=== PATIENT | female | born 1960 | race Caucasian/White ===

== ENCOUNTER 2017-03-21 09:43 | Outpatient (CLI) | payer OTHER ==
[2017-03-21 11:26] LABS: #Basophils 0.1 thou/uL (0.0-0.2); #Eosinphils 0.2 thou/uL (0.0-0.7); #Lymphocytes 2.2 thou/uL (1.20-3.40); #Monocytes 0.6 thou/uL (0.11-0.59); #Neutrophils 5.9 thou/uL (1.40-6.50); %Basophils 0.7 % (0.0-1.0); %Eosinophils 2.2 % (0.0-10.0); %Lymphocytes 24.5 % (21.0-51.0); %Monocytes 7.1 % (0.0-10.0); Hematocrit 43.5 % (36.0-47.0); Mean Platelet Volume 7.7 fL (7.4-10.4); Red Blood Cell (RBC) Count 4.62 mill/uL (4.20-5.40); White Blood Cell (WBC) Count 8.9 thou/uL (4.8-10.8)
[2017-03-21 11:30] LABS: Hemoglobin A1c 5.6 % (4.0-6.0)
[2017-03-21 11:49] LABS: ALT (SGPT) 75 U/L (8-55); AST (SGOT) 40 U/L (5-34); Alkaline Phosphatase 93 U/L (40-150); Anion Gap 11 mmol/L (10-20); BUN (Urea Nitrogen) 17 mg/dL (9.8-20.1); Bilirubin, Direct 0.2 mg/dL (0.1-0.3); Bilirubin, Total 0.3 mg/dL (0.2-1.2); Calc. Creatinine Clearance 0 mL/min (70-130); Calcium 9.9 mg/dL (7.8-10.44); Carbon Dioxide 27 mmol/L (22-29); Chloride 105 mmol/L (98-107); Estimated GFR-MDRD 74; Globulin 3.1 g/dL (2.4-3.5); Protein, Total 7.7 g/dL (6.0-8.3)
--- NOTE | 2017-03-21 13:02 | RAD ---
PREOPERATIVE CHEST RADIOGRAPH: HISTORY: A 56-year-old female. FINDINGS: PA and lateral views of the chest are obtained. The lungs are well aerated. No evidence of active i ntrathoracic disease is seen. No evidence of effusions, pneumonia, or pneumothorax is seen. IMPRESSION: Normal two views chest. POS: C
== END 2017-03-21 09:44 | disposition home or self-care (01) ==
LOC: LABBT 09:43
PROVIDERS: ATTEND Surgery
DX: Z01.818 Encounter for other preprocedural examination (principal); E66.01 Morbid (severe) obesity due to excess calories
CPT/HCPCS: 71020; 80053; 80076; 83036; 85025; 93005; 93010

== ENCOUNTER 2017-03-21 10:00 | Inpatient (IN) | payer OTHER ==
[2017-03-28] MEDS ORDERED: CEFAZOLIN/Water 2 GM/20 ML SYRINGE ONE (10:21)
[2017-03-28] MEDS ORDERED: Heparin 5,000 UNITS/ML VIAL ONE (10:22)
[2017-03-28] MEDS ORDERED: Bupivacaine/Epinephrine 0.25% 30 ML VIAL ONE (10:44)
[2017-03-28] MEDS ORDERED: Bupivacaine 0.25% HCL 30 ML VIAL ONE (10:45)
[2017-03-28] MEDS ORDERED: Fentanyl 100 MCG/2 ML VIAL ONE (11:15)
[2017-03-28] MEDS ORDERED: Promethazine HCl 25 MG/ML VIAL ONE (11:16)
[2017-03-28] MEDS ORDERED: Scopolamine 1.5 mg/72 hour Patch ONE (11:40)
[2017-03-28] MEDS ORDERED: Promethazine HCl 25 MG/ML VIAL SLOW IVP PRN (13:30)
[2017-03-28] MEDS ORDERED: HYDROmorphone 2 MG/ML VIAL SLOW IVP PRN (13:30)
[2017-03-28] MEDS ORDERED: Ondansetron HCl/PF 4 MG/2 ML Vial IVP PRN ×3 (13:30→14:55)
[2017-03-28] MEDS ORDERED: Morphine Sulfate 2 MG/ML SYRINGE SLOW IVP PRN (13:30)
[2017-03-28] MEDS ORDERED: Lidocaine 1% PF 5 ML VIAL ONE (13:55)
[2017-03-28] MEDS ORDERED: Glycopyrrolate 0.2 MG/ML 5 ML SYRINGE ONE (13:55)
[2017-03-28] MEDS ORDERED: Ketorolac Tromethamine 30 MG/ML VIAL ONE (13:55)
[2017-03-28] MEDS ORDERED: Propofol 200 MG/20 ML VIAL ONE (13:55)
[2017-03-28] MEDS ORDERED: Ondansetron HCl/PF 4 MG/2 ML Vial ONE (13:55)
[2017-03-28] MEDS ORDERED: Labetalol HCl 100 MG/20 ML VIAL ONE (13:55)
[2017-03-28] MEDS ORDERED: PHENYLEPHRINE-NS 100 MCG/ML 10 ML SYRINGE ONE (13:55)
[2017-03-28] MEDS ORDERED: Dexamethasone 20 MG/5 ML VIAL ONE (13:55)
[2017-03-28] MEDS ORDERED: Fentanyl 5000 MCG/250 ML CADD IVPB PRN (14:07)
[2017-03-28] MEDS ORDERED: Zolpidem Tartrate 5 MG TAB PO PRN (14:07)
[2017-03-28] MEDS ORDERED: diphenhydrAMINE 25 MG CAP PO PRN (14:07)
[2017-03-28] MEDS ORDERED: Naloxone HCl 0.4 mg/ml Vial IV PRN (14:07)
[2017-03-28] MEDS ORDERED: diphenhydrAMINE 50 MG/ML VIAL IM PRN (14:07)
[2017-03-28] MEDS ORDERED: Promethazine HCl 25 MG/ML VIAL IM PRN ×2 (14:07→14:55)
[2017-03-28] MEDS ORDERED: diphenhydrAMINE 50 MG/ML VIAL IVP PRN ×2 (14:07→14:55)
[2017-03-28] MEDS ORDERED: Communication Order-Pharmacy FS SCH (14:15)
[2017-03-28] MEDS ORDERED: Hydrocodone-Acetamin 15 ML UDCUP PO PRN (14:55)
[2017-03-28] MEDS ORDERED: Dextrose 50% Abboject 50 ML SYRINGE SLOW IVP PRN (14:55)
[2017-03-28] MEDS ORDERED: hydrALAZINE 20 MG/ML VIAL SLOW IVP PRN (14:55)
[2017-03-28] MEDS ORDERED: Dextrose 5% in Water 1,000 ML IV PRN (14:55)
--- NOTE | 2017-03-28 16:13 | OP ---
DATE OF PROCEDURE: 03/28/2017 PREOPERATIVE DIAGNOSES: 1. Morbid obesity with body mass index of 36. 2. Hypertension. 3. Dyslipidemia. POSTOPERATIVE DIAGNOSES: 1. Morbid obesity with body mass index of 36. 2. Hypertension. 3. Dyslipidemia. PROCEDURE: Laparoscopic sleeve gastrectomy with [place] staple line reinforcements and 38-Divehi bougie . SURGEON: Cy Carvajal M.D. ANESTHESIA: General. ESTIMATED BLOOD LOSS: Minimal. COMPLICATIONS: None. SPECIMEN: Stomach. FINDINGS: Normal postoperative EGD. TECHNIQUE: The patient was taken to the operating room and placed supine on the table. After genera l anesthetic was obtained, arms and legs were double strapped to bariatric table. OG tube was used t o decompress the stomach. Left subcostal 5-mm Optiview trocar was placed in the usual fashion. High -flow pneumoperitoneum was obtained. Left and right abdominal 12-mm port and a right subcostal 5-mm port were placed under direct visualization. A 5-mm incision was made at the xiphoid and Nathansen w as used to raise the liver off the GE junction. There was no hiatal hernia. Short gastrics were danie en down from mid body of stomach to left gregg of the diaphragm using LigaSure. They were taken down to a distance of 6 cm proximal to the pylorus. The posterior fundus, left gregg, and angle of His wer e completely dissected. A 38 bougie was brought in and its tip left in the antrum of the stomach. T he OG tube had been removed. Multiple loads of an [place] stapling device with [place] staple line rein forcements are used to form sleeve versus fired up to a distance of 6 cm proximal to the pylorus angl ed up towards the incisura. Multiple loads are fired along the incisura and the stomach was complete ly transected at the angle of His. The stomach was removed from left abdominal incision. This fasci al defect was closed using GraNee needle 0 Vicryl tie. All port sites are infiltrated using local an esthetic. EGD scope was passed into the esophagus, stomach to the level of the duodenum without obst ruction. There was no stricture at the incisura. No involvement of the GE junction with the staple line. EGD scope was used to decompress the stomach, was pulled and removed. All port sites are infi ltrated using local anesthetic. All ports were removed under direct camera visualization. The prep was let down. The Vicryl was used to close the fascial defect from the left abdominal incisions. Al l incisions were irrigated and closed using 4-0 Monocryl and Dermabond. The patient went to recovery in stable condition. All instrument counts, needle counts, and lap counts were correct.
[2017-03-28] MEDS: Ketorolac Tromethamine 30 MG/ML VIAL IVP SCH (17:50)
[2017-03-28] MEDS: Acetaminophen 1,000 MG in Premix Bag 1 BAG IVPB SCH (17:51)
[2017-03-28 18:10] VITALS: BMI 34.7
[2017-03-28] MEDS: D5 1/2 NS w/20 mEq KCL 1,000 ML IV SCH (19:12)
[2017-03-28] MEDS ORDERED: Enoxaparin Sodium 40 MG/0.4 ML SYRINGE SC SCH (21:00)
[2017-03-29] MEDS: Acetaminophen 1,000 MG in Premix Bag 1 BAG IVPB SCH ×2 (00:24→05:25)
[2017-03-29] MEDS: Ketorolac Tromethamine 30 MG/ML VIAL IVP SCH ×3 (00:24→13:55)
[2017-03-29] MEDS: D5 1/2 NS w/20 mEq KCL 1,000 ML IV SCH ×3 (00:25→13:55)
[2017-03-29 05:50] LABS: #Monocytes 0.9 thou/uL (0.11-0.59); #Neutrophils 8.4 thou/uL (1.40-6.50); %Basophils 0.1 % (0.0-1.0); %Eosinophils 0.3 % (0.0-10.0); %Lymphocytes 17.4 % (21.0-51.0); %Monocytes 7.8 % (0.0-10.0); Hematocrit 37.9 % (36.0-47.0); Mean Platelet Volume 8.5 fL (7.4-10.4); Red Blood Cell (RBC) Count 3.99 mill/uL (4.20-5.40); White Blood Cell (WBC) Count 11.3 thou/uL (4.8-10.8)
[2017-03-29 06:04] LABS: Anion Gap 9 mmol/L (10-20); BUN (Urea Nitrogen) 9 mg/dL (9.8-20.1); Calc. Creatinine Clearance 124 mL/min (70-130); Calcium 9.1 mg/dL (7.8-10.44); Carbon Dioxide 26 mmol/L (22-29); Chloride 108 mmol/L (98-107); Estimated GFR-MDRD 80
[2017-03-29] MEDS ORDERED: Pantoprazole 40 MG VIAL IVP SCH (09:00)
--- NOTE | 2017-03-29 09:20 | RAD ---
LIMITED UPPER GI: History: Patient is post gastric sleeve procedure. Exam is performed to assess post-operative status. FINDINGS: Patient was given 15 cc of water soluable contrast by mouth under fluoroscopic observation. Contrast flowed through the sleeve portion of the stomach without difficulty. There was no evidence o f extravasation. Contrast moved into the duodenum. IMPRESSION: Unremarkable post gastric sleeve exam. POS: [facility]
[2017-03-29 11:30] VITALS: BP 145/80; TEMP 98.3
--- NOTE | 2017-03-29 12:41 | DIS ---
DATE OF ADMISSION: 03/28/2017 DATE OF DISCHARGE: 03/29/2017 ADMISSION DIAGNOSES: Morbid obesity, hypertension, dyslipidemia. DISCHARGE DIAGNOSES: Morbid obesity, hypertension, dyslipidemia. PROCEDURES: Laparoscopic sleeve gastrectomy, EGD by Dr. Carvajal without complication. HOSPITAL COURSE: Postop day 1, the patient was doing well, started on liquids. Her swallow study wa s cleared by the radiologist. Her wounds were clear. Her vital signs were stable. She is to be dis charged home. DISCHARGE MEDICINES: Include Lortab elixir, Zofran dissolvable. All home meds as before discharge s table at discharge.
[2017-03-29] MEDS ORDERED: Hydrocodone-Acetamin 15 ML UDCUP PO PRN (13:54)
== END 2017-03-29 15:30 | disposition home or self-care (01) | DRG 621 ==
LOC: SURG A 03-28 09:58 → SJJU 03-28 13:59
PROVIDERS: ADMIT Surgery; ATTEND Surgery
PROC: 0DB64Z3 Excision of Stomach, Percutaneous Endoscopic Approach, Vertical (ICD-10-PCS; principal; 2017-03-28)
DX: E66.01 Morbid (severe) obesity due to excess calories (principal); I10 Essential (primary) hypertension; Z68.36 Body mass index [BMI] 36.0-36.9, adult; E78.5 Hyperlipidemia, unspecified; K21.9 Gastro-esophageal reflux disease without esophagitis
CPT/HCPCS: 36415; 74241; 80048; 85025; 88307; 88312; 94760; C9113; J0131; J1100; J1644; J1650; J1885; J2001; J2405; J2550; J2704; J3010; S0020

== ENCOUNTER 2017-04-18 15:54 | Outpatient (CLI) | payer OTHER | END 2017-04-18 15:55 | disposition home or self-care (01) | LOC: BICMAMMO 15:54 | PROVIDERS: ATTEND Family Medicine | DX: Z12.31 Encounter for screening mammogram for malignant neoplasm of breast (principal) | CPT/HCPCS: 77063; 77067; G0202 ==

== ENCOUNTER 2021-02-16 10:05 | Outpatient (CLI) | payer OTHER | END 2021-02-16 10:06 | disposition home or self-care (01) | LOC: BICMAMMO 10:05 | PROVIDERS: ATTEND Family Medicine | DX: Z12.31 Encounter for screening mammogram for malignant neoplasm of breast (principal) | CPT/HCPCS: 77063; 77067 ==